=== PATIENT | male | born 1980 | race African-American/Black ===

== ENCOUNTER 2020-09-26 18:57 | Emergency (ER) | payer OTHER ==
[2020-09-26 19:03] VITALS: BP 128/79; PULSE 58; BMI 31.4
[2020-09-26 19:56] VITALS: TEMP 97.9
== END 2020-09-26 21:33 | disposition home or self-care (01) ==
LOC: JER 18:57
DX: S09.90XA Unspecified injury of head, initial encounter (principal)
CPT/HCPCS: 70450-TC; 99284-25

== ENCOUNTER 2020-12-11 15:15 | Emergency (ER) | payer OTHER ==
[2020-12-11 15:33] VITALS: BP 145/93; PULSE 98; TEMP 97.9; BMI 38.3
[2020-12-11] MEDS ORDERED: DIPHTH,PERTUSS(ACELL),TET 0.5 ML DISP.SYRIN IM ONE ×2 (16:24→16:33)
== END 2020-12-11 19:35 | disposition home or self-care (01) ==
LOC: JERFT 15:15
PROC: 3E0234Z Introduction of Serum, Toxoid and Vaccine into Muscle, Percutaneous Approach (ICD-10-PCS; principal; 2020-12-11)
DX: S51.851A Open bite of right forearm, initial encounter (principal); Y04.0XXA Assault by unarmed brawl or fight, initial encounter; Y92.9 Unspecified place or not applicable
CPT/HCPCS: 70450-TC; 70486-TC; 90471; 90715; 99284-25

== ENCOUNTER 2022-01-14 08:34 | Inpatient (IN) | payer OTHER ==
[2022-01-14 09:13] VITALS: BMI 28.5
[2022-01-14] MEDS ORDERED: MAG HYDROX/AL HYDROX/SIMETH 30 ML UNIT-DOSE CUP PO PRN (11:21)
[2022-01-14] MEDS ORDERED: MAGNESIUM HYDROX 2400MG/30ML ORAL SUSPENSION 30 ML CUP PO PRN (11:21)
[2022-01-14] MEDS ORDERED: hydrOXYzine PAMOATE 25 MG CAPSULE (FP) PO PRN (11:21)
[2022-01-14] MEDS ORDERED: BISMUTH SUBSALICYLATE 524 MG/30 ML PO PRN (11:21)
[2022-01-14] MEDS ORDERED: ACETAMINOPHEN 325 MG TABLET (FP) PO PRN ×2 (11:21)
[2022-01-14] MEDS ORDERED: METHOCARBAMOL 500 MG TABLET PO PRN (11:21)
[2022-01-14] MEDS ORDERED: ONDANSETRON *ODT* 4 MG TABLET SL PRN (11:21)
[2022-01-14] MEDS ORDERED: NALOXONE HCL (KLOXXADO) 8 MG SPRAY NS PRN (11:21)
[2022-01-14] MEDS ORDERED: NICOTINE 10 MG CARTRIDGE (INHALER) IH PRN (11:21)
[2022-01-14] MEDS ORDERED: diazePAM 5 MG TABLET PO PRN (11:21)
[2022-01-14] MEDS ORDERED: BUPRENORPHINE HCL 150 MCG, BUPRENORPHINE HCL 75 MCG BC PRN (11:21)
[2022-01-14] MEDS ORDERED: chlordiazePOXIDE HCL 25 MG CAPSULE PO PRN (11:21)
[2022-01-14] MEDS ORDERED: BENZOCAINE/MENTHOL (CHLORASEPTIC ) LOZENGE MM PRN (11:21)
[2022-01-14] MEDS ORDERED: LOPERAMIDE HCL 2 MG CAPSULE PO PRN (11:21)
[2022-01-14] MEDS ORDERED: IBUPROFEN 600 MG TABLET (FP) PO PRN (11:21)
[2022-01-14] MEDS ORDERED: IBUPROFEN 400 MG TABLET (FP) PO PRN (11:21)
[2022-01-14] MEDS ORDERED: DICYCLOMINE HCL 10 MG CAPSULE PO PRN (11:21)
[2022-01-14] MEDS ORDERED: BUPRENORPHINE HCL 150 MCG, BUPRENORPHINE HCL 75 MCG BC ONE (11:30)
[2022-01-14] MEDS ORDERED: cloNIDine HCL 0.1 MG TABLET PO ONE (11:45)
[2022-01-14] MEDS ORDERED: BUPRENORPHINE HCL 150 MCG FILM BC ONE (12:10)
[2022-01-14] MEDS ORDERED: BUPRENORPHINE HCL 75 MCG FILM BC ONE (12:11)
[2022-01-14] MEDS ORDERED: chlordiazePOXIDE HCL 25 MG CAPSULE ONE (12:12)
[2022-01-14] MEDS ORDERED: hydrOXYzine PAMOATE 25 MG CAPSULE (FP) PO ONE (12:13)
[2022-01-14] MEDS: NICOTINE 14 MG/24 HOURS TOPICAL PATCH TD SCH (12:59)
[2022-01-14] MEDS ORDERED: HYDROCORTISONE 0.5% TOPICAL CREAM 30 GM TUBE TP ONE (13:00)
[2022-01-14] MEDS: PRENATAL VITAMINS W/ FOLIC ACID TABLET (FP) PO SCH (13:00)
[2022-01-14 14:31] LABS: HEMATOCRIT 40.2 % (35.4-49); HEMOGLOBIN 13.2 GM/dL (11.7-16.9); MCH 27.2 pg (25.7-33.7); MCHC 32.7 g/dl (32.0-35.9); MEAN CELL VOLUME 83.2 fl (80-96); MEAN PLT VOLUME 7.5 fl (7.5-11.1); PLATELET COUNT 268 10^3/uL (134-434); RBC 4.84 M/mm3 (4.00-5.60); RDW 14.9 % (11.9-15.9); WHITE BLOOD COUNT 9.4 K/mm3 (4.0-10.0)
[2022-01-14 14:40] LABS: CALCIUM 9.5 mg/dL (8.5-10.1)
[2022-01-14 14:41] LABS: ALBUMIN 3.8 g/dl (3.4-5.0); BLOOD UREA NITROGEN 14.4 mg/dL (7-18)
[2022-01-14 14:44] LABS: CREATININE 1.1 mg/dL (0.55-1.3)
[2022-01-14 14:45] LABS: BILIRUBIN,TOTAL 0.3 mg/dL (0.2-1); TOT PROT 7.4 g/dl (6.4-8.2)
[2022-01-14] MEDS ORDERED: cloNIDine HCL 0.1 MG TABLET PO PRN (15:21)
[2022-01-14] MEDS: chlordiazePOXIDE HCL 25 MG CAPSULE PO SCH ×2 (18:05→22:33)
[2022-01-14] MEDS ORDERED: PANTOPRAZOLE 20 MG TABLET PO SCH (22:00)
[2022-01-14] MEDS ORDERED: MELATONIN 5 MG TABLETS PO SCH (22:00)
[2022-01-14] MEDS ORDERED: THIAMINE HCL 100 MG TABLET (FP) PO SCH (22:00)
[2022-01-15] MEDS ORDERED: BUPRENORPHINE HCL 150 MCG, BUPRENORPHINE HCL 75 MCG BC PRN
[2022-01-15] MEDS: BACITRACIN 15 GM TUBE TOPICAL OINTMENT TP SCH ×2 (02:38→10:18)
[2022-01-15] MEDS: chlordiazePOXIDE HCL 25 MG CAPSULE PO SCH ×2 (05:25→10:18)
[2022-01-15] MEDS ORDERED: BUPRENORPHINE HCL 150 MCG, BUPRENORPHINE HCL 75 MCG BC SCH (06:00)
[2022-01-15] MEDS ORDERED: POLYETHYLENE GLYCOL (HEALTHYLAX) 3350 17 GM PACKET PO SCH (10:00)
[2022-01-15] MEDS: PRENATAL VITAMINS W/ FOLIC ACID TABLET (FP) PO SCH (10:18)
[2022-01-15] MEDS: NICOTINE 14 MG/24 HOURS TOPICAL PATCH TD SCH (10:18)
[2022-01-15 10:50] VITALS: BP 115/76; PULSE 79; RESP 17; TEMP 97.7
[2022-01-16] MEDS ORDERED: chlordiazePOXIDE HCL 25 MG CAPSULE PO SCH (05:00)
[2022-01-16] MEDS ORDERED: BUPRENORPHINE HCL 450 MCG FILM BC SCH (06:00)
[2022-01-17] MEDS ORDERED: chlordiazePOXIDE HCL 10 MG CAPSULE PO PRN
[2022-01-17] MEDS ORDERED: chlordiazePOXIDE HCL 10 MG CAPSULE PO SCH (05:00)
[2022-01-17] MEDS ORDERED: BUPRENORPHINE/NALOXONE 4 MG/1 MG FILM PACKET SL SCH (06:00)
[2022-01-18] MEDS ORDERED: chlordiazePOXIDE HCL 10 MG CAPSULE PO SCH (05:00)
[2022-01-18] MEDS ORDERED: BUPRENORPHINE/NALOXONE 8 MG/2 MG FILM PACKET SL ONE (06:00)
[2022-01-19] MEDS ORDERED: chlordiazePOXIDE HCL 10 MG CAPSULE PO ONE (05:00)
== END 2022-01-15 13:20 | disposition left against medical advice (07) | DRG 770 ==
LOC: YASAS 08:34 → Y6N 12:06
PROVIDERS: ADMIT Allergy & Immunology; ATTEND Surgery
PROC: HZ2ZZZZ Detoxification Services for Substance Abuse Treatment (ICD-10-PCS; principal; 2022-01-14)
DX: F11.23 Opioid dependence with withdrawal (principal); F10.230 Alcohol dependence with withdrawal, uncomplicated; F13.20 Sedative, hypnotic or anxiolytic dependence, uncomplicated; F17.210 Nicotine dependence, cigarettes, uncomplicated; K21.9 Gastro-esophageal reflux disease without esophagitis; K59.09 Other constipation; L30.9 Dermatitis, unspecified; Z87.820 Personal history of traumatic brain injury; Z28.310 Unvaccinated for COVID-19; Z28.9 Immunization not carried out for unspecified reason
CPT/HCPCS: 36415; 80053; 82140; 85027; 86780; 87811; 93005; 93010; C9803-CS; U0003; U0005

== ENCOUNTER 2024-03-12 14:59 | Inpatient (IN) | payer OTHER ==
[2024-03-12 15:40] VITALS: BMI 29.2
[2024-03-12] MEDS ORDERED: DICYCLOMINE HCL 10 MG CAPSULE PO PRN (16:17)
[2024-03-12] MEDS ORDERED: LOPERAMIDE HCL 2 MG CAPSULE PO PRN (16:17)
[2024-03-12] MEDS ORDERED: BISMUTH SUBSALICYLATE 524 MG/30 ML PO PRN (16:17)
[2024-03-12] MEDS ORDERED: NICOTINE POLACRILEX 4 MG LOZENGE BC PRN (16:17)
[2024-03-12] MEDS ORDERED: BENZOCAINE/MENTHOL (CHLORASEPTIC ) LOZENGE MM PRN (16:17)
[2024-03-12] MEDS ORDERED: guaiFENesin 600 MG TABLET.ER (FP) PO PRN (16:17)
[2024-03-12] MEDS ORDERED: ACETAMINOPHEN 325 MG TABLET (FP) PO PRN (16:17)
[2024-03-12] MEDS ORDERED: NICOTINE POLACRILEX 4 MG GUM BUC PRN (16:17)
[2024-03-12] MEDS ORDERED: MAG HYDROX/AL HYDROX/SIMETH 30 ML UNIT-DOSE CUP PO PRN (16:17)
[2024-03-12] MEDS ORDERED: IBUPROFEN 400 MG TABLET (FP) PO PRN (16:17)
[2024-03-12] MEDS ORDERED: NALOXONE (NARCAN) HCL 4 MG/0.1 ML SPRAY NS PRN (16:17)
[2024-03-12] MEDS ORDERED: BENZONATATE 200 MG CAPSULE PO PRN (16:17)
[2024-03-12] MEDS: IBUPROFEN 600 MG TABLET (FP) PO PRN (19:43)
[2024-03-12] MEDS: hydrOXYzine PAMOATE 25 MG CAPSULE (FP) PO PRN (19:43)
[2024-03-12] MEDS: MELATONIN 5 MG TABLETS PO SCH (22:03)
[2024-03-12] MEDS: THIAMINE 100 MG TABLET PO SCH (22:03)
[2024-03-12] MEDS: FAMOTIDINE 20 MG TABLET PO SCH (22:03)
[2024-03-13] MEDS: METHOCARBAMOL 500 MG TABLET PO PRN (01:23)
[2024-03-13] MEDS: MELATONIN 5 MG TABLETS PO ONE (01:45)
[2024-03-13] MEDS: NICOTINE 21 MG/24 HOURS TOPICAL PATCH TD SCH (10:11)
[2024-03-13] MEDS: methaDONE HCL 10 MG TABLET PO ONE (10:11)
[2024-03-13] MEDS: cloNIDine HCL 0.1 MG TABLET PO SCH (10:11)
[2024-03-13] MEDS: PRENATAL VITAMINS W/ FOLIC ACID TABLET (FP) PO SCH (10:11)
[2024-03-13 12:35] LABS: CHLORIDE 111 mmol/L (98-107); POTASSIUM 4.1 mmol/L (3.5-5.1); SODIUM 143 mmol/L (136-145)
[2024-03-13 12:40] LABS: HEMATOCRIT 39.2 % (35.4-49); HEMOGLOBIN 12.7 GM/dL (11.7-16.9); MCH 27.1 pg (25.7-33.7); MCHC 32.5 g/dl (32.0-35.9); MEAN CELL VOLUME 83.3 fl (80-96); MEAN PLT VOLUME 8.2 fl (7.5-11.1); PLATELET COUNT 291 10^3/uL (134-434); RBC 4.71 M/mm3 (4.00-5.60); RDW 16.6 % (11.9-15.9); WHITE BLOOD COUNT 9.5 K/mm3 (4.0-10.0)
[2024-03-13 12:52] LABS: CALCIUM 9.6 mg/dL (8.5-10.1)
[2024-03-13 12:53] LABS: ALBUMIN 3.3 g/dl (3.4-5.0); ANION GAP 5 mmol/L (4-13); BLOOD UREA NITROGEN 7.9 mg/dL (7-18); CO2 27 mmol/L (21-32); GLUCOSE,RANDOM 98 mg/dL (74-106)
[2024-03-13 12:56] LABS: SGOT/AST 24 U/L (15-37)
[2024-03-13 12:57] LABS: BILIRUBIN,TOTAL 0.7 mg/dL (0.2-1); SGPT/ALT 28 U/L (13-61)
[2024-03-13 12:58] LABS: TOT PROT 6.4 g/dl (6.4-8.2)
[2024-03-13 12:59] LABS: ALK PHOS 56 U/L (45-117)
[2024-03-13] MEDS ORDERED: chlordiazePOXIDE HCL 25 MG CAPSULE PO PRN (13:33)
[2024-03-13] MEDS: chlordiazePOXIDE HCL 25 MG CAPSULE PO SCH (17:22)
[2024-03-14] MEDS ORDERED: methaDONE HCL 40 MG DISPERSABLE TABLET PO ONE (10:00)
[2024-03-14] MEDS: ONDANSETRON *ODT* 4 MG TABLET SL PRN (10:44)
[2024-03-15] MEDS ORDERED: cloNIDine HCL 0.1 MG TABLET PO PRN
[2024-03-15] MEDS: chlordiazePOXIDE HCL 25 MG CAPSULE PO SCH (06:00)
[2024-03-15] MEDS: methaDONE HCL 40 MG DISPERSABLE TABLET PO ONE (10:14)
[2024-03-15] MEDS: MAGNESIUM HYDROX 2400MG/30ML ORAL SUSPENSION 30 ML CUP PO PRN (10:15)
[2024-03-15] MEDS: POLYETHYLENE GLYCOL (HEALTHYLAX) 3350 17 GM PACKET PO PRN (22:28)
[2024-03-16] MEDS ORDERED: chlordiazePOXIDE HCL 10 MG CAPSULE PO PRN
[2024-03-16] MEDS: chlordiazePOXIDE HCL 10 MG CAPSULE PO SCH (05:32)
[2024-03-16] MEDS ORDERED: methaDONE HCL 40 MG DISPERSABLE TABLET PO ONE (10:00)
[2024-03-16] MEDS: LACTULOSE 20 GM/30 ML UDC (FOR ORAL USE ONLY) PO SCH (17:32)
[2024-03-17] MEDS: chlordiazePOXIDE HCL 10 MG CAPSULE PO SCH (05:51)
[2024-03-17] MEDS: methaDONE 40 MG, methaDONE 10 MG PO ONE (09:58)
[2024-03-17] MEDS ORDERED: methaDONE HCL 40 MG DISPERSABLE TABLET PO ONE (10:00)
[2024-03-18] MEDS: chlordiazePOXIDE HCL 10 MG CAPSULE PO ONE (06:00)
[2024-03-18] MEDS: NALOXONE (NYS OPIOID OVERDOSE PROGRAM) 4 MG/0.1 ML SPRAY NS SCH (08:55)
[2024-03-18] MEDS ORDERED: methaDONE HCL 40 MG DISPERSABLE TABLET PO ONE (10:00)
[2024-03-18 10:22] VITALS: BP 123/69; PULSE 70; RESP 16; TEMP 97
[2024-03-18] MEDS ORDERED: methaDONE HCL 10 MG TABLET PO ONE (10:39)
[2024-03-18] MEDS: methaDONE 40 MG, methaDONE 10 MG PO ONE (11:06)
== END 2024-03-18 12:33 | disposition other institution (70) | DRG 773 ==
LOC: YASAS 14:59 → Y3N 16:53
PROVIDERS: ADMIT Allergy & Immunology; ATTEND Family Medicine Addiction Medicine
PROC: HZ2ZZZZ Detoxification Services for Substance Abuse Treatment (ICD-10-PCS; principal; 2024-03-12)
DX: F11.23 Opioid dependence with withdrawal (principal); F10.230 Alcohol dependence with withdrawal, uncomplicated; F16.10 Hallucinogen abuse, uncomplicated; F12.20 Cannabis dependence, uncomplicated; F17.210 Nicotine dependence, cigarettes, uncomplicated; F19.24 Other psychoactive substance dependence with psychoactive substance-induced mood disorder; E72.20 Disorder of urea cycle metabolism, unspecified; K59.09 Other constipation; G47.00 Insomnia, unspecified; R73.03 Prediabetes; Z87.820 Personal history of traumatic brain injury
CPT/HCPCS: 36415; 80053; 80305; 80307; 82140; 83036; 85027; 86780; 87811; 93005; 93010; Q0162